=== PATIENT | female | born 1940 | race Caucasian/White ===

== ENCOUNTER 2020-08-29 11:00 | Outpatient (CLI) | payer MEDICARE, OTHER | END 2020-08-29 11:01 | disposition home or self-care (01) | LOC: CSHMAMMO 11:00 | PROVIDERS: ATTEND Internal Medicine | DX: Z12.31 Encounter for screening mammogram for malignant neoplasm of breast (principal) | CPT/HCPCS: 77063; 77067 ==

== ENCOUNTER 2023-06-11 07:45 | Outpatient (CLI) | payer MEDICARE, OTHER ==
[2023-06-11] MEDS ORDERED: Magnevist 469MG/ML 20 ML VIAL ONE (14:13)
== END 2023-06-11 07:46 | disposition home or self-care (01) ==
LOC: CSHMRI 07:45
PROVIDERS: ATTEND Internal Medicine
DX: H54.7 Unspecified visual loss (principal); R09.89 Other specified symptoms and signs involving the circulatory and respiratory systems
CPT/HCPCS: 70544; 70549; 70551; 82565; A9579

== ENCOUNTER 2023-07-09 10:43 | Emergency (ER) | payer MEDICARE, OTHER ==
[2023-07-09 12:36] LABS: #Eosinphils 0.1 10x3/uL (0.0-0.5); #Monocytes 0.5 10x3/uL (0.0-1.1); #Neutrophils 4.2 10x3/uL (1.5-8.4); %Basophils 0.4 % (0.0-2.0); %Eosinophils 1.1 % (0.0-6.0); %Lymphocytes 13.1 % (18.0-47.0); %Monocytes 9.7 % (0.0-10.0); %Neutrophils 75.5 % (40.0-75.0); Hematocrit 38.6 % (34.9-44.5); Hemoglobin 13.5 g/dL (12.0-15.5); Mean Corpuscular Hemoglobin 31.8 pg (27.0-33.0); Mean Corpuscular Volume 90.8 fl (81.6-98.3); Mean Platelet Volume 8.6 fl (7.4-10.4); Platelet Count 434 10x3/uL (150-450); RBC Distribution Width 12.5 % (11.5-14.5); Red Blood Cell (RBC) Count 4.25 10x6/uL (3.90-5.03); White Blood Cell (WBC) Count 5.5 10x3/uL (3.5-10.5)
[2023-07-09 12:54] LABS: ALT (SGPT) 22 U/L (8-55); AST (SGOT) 41 U/L (5-34); Albumin 4.7 g/dL (3.4-4.8); Alkaline Phosphatase 66 U/L (40-110); Anion Gap 15 mmol/L (10-20); BUN (Urea Nitrogen) 18 mg/dL (9.8-20.1); Bilirubin, Total 0.5 mg/dL (0.2-1.2); Calc. Creatinine Clearance 0 mL/min (70-130); Carbon Dioxide 26 mmol/L (23-31); Chloride 95 mmol/L (98-107); Estimated GFR 58; Globulin 2.8 g/dL (2.4-3.5); Glucose 88 mg/dL (83-110); Potassium 4.4 mmol/L (3.5-5.1); Protein, Total 7.5 g/dL (5.8-8.1); Sodium 132 mmol/L (136-145)
[2023-07-09] MEDS ORDERED: Meclizine HCl 25 MG TAB ONE (13:01)
== END 2023-07-09 14:30 | disposition home or self-care (01) ==
LOC: CSHERS 10:43
DX: E87.1 Hypo-osmolality and hyponatremia (principal); I10 Essential (primary) hypertension; Z55.6 Problems related to health literacy; Z79.899 Other long term (current) drug therapy; Z79.82 Long term (current) use of aspirin
CPT/HCPCS: 70450; 80053; 85025; 93005

== ENCOUNTER 2023-11-19 09:05 | Outpatient (CLI) | payer MEDICARE, OTHER | END 2023-11-19 09:06 | disposition home or self-care (01) | LOC: CSHRAD 09:05 | PROVIDERS: ATTEND Internal Medicine | DX: M54.50 Low back pain, unspecified (principal); M41.9 Scoliosis, unspecified; M47.816 Spondylosis without myelopathy or radiculopathy, lumbar region | CPT/HCPCS: 72100 ==